=== PATIENT | female | born 1965 | race Caucasian/White ===

== ENCOUNTER 2017-12-06 17:20 | Emergency (ER) | payer OTHER ==
[2017-12-06 19:27] VITALS: BP 150/81; PULSE 70; RESP 18; O2SAT 100
[2017-12-06 20:39] LABS: BASOPHIL # 0.1 TH/MM3 (0-0.2); BASOPHIL % 0.8 % (0.0-2.0); EOSINOPHIL # 0.1 TH/MM3 (0-0.4); HEMATOCRIT 37.4 % (35.0-46.0); HEMOGLOBIN 12.1 GM/DL (11.6-15.3); LYMPH % 31.9 % (9.0-44.0); LYMPHOCYTE # 2.3 TH/MM3 (1.0-4.8); MEAN CELL VOLUME 89.3 FL (80.0-100.0); MEAN CORPUSCULAR HGB CONC 32.4 % (32.0-36.0); MEAN PLATELET VOLUME 10.1 FL (7.0-11.0); MONO % 8.8 % (0.0-8.0); MONOCYTE # 0.6 TH/MM3 (0-0.9); NEUT % 56.5 % (16.0-70.0); PLATELET COUNT 228 TH/MM3 (150-450); RED BLOOD COUNT 4.19 MIL/MM3 (4.00-5.30); RED CELL DISTRIBUTION WIDTH 18.9 % (11.6-17.2); WHITE BLOOD COUNT 7.1 TH/MM3 (4.0-11.0)
[2017-12-06 20:40] LABS: BILIRUBIN, URINE NEG (NEG); BLOOD, URINE NEG (NEG); GLUCOSE,URINE NEG (NEG); KETONE, URINE 10 mg/dL (NEG); NITRITE,URINE NEG (NEG); PH, URINE 5.5 (5.0-8.5); SQUAMOUS EPITHELIAL CELL URINE <1 /hpf (0-5); URINE COLOR LIGHT-YELLOW (YELLW/STRAW); URINE LEUKOCYTE ESTERASE NEG (NEG)
[2017-12-06 20:58] LABS: ALBUMIN 3.8 GM/DL (3.4-5.0); AST (GOT) 15 U/L (15-37); BICARBONATE 23.5 MEQ/L (21.0-32.0); BLOOD UREA NITROGEN 14 MG/DL (7-18); CALCIUM 9.4 MG/DL (8.5-10.1); CHLORIDE 110 MEQ/L (98-107); CREATININE 0.61 MG/DL (0.50-1.00); GLOMERULAR FILTRATION RATE 102 ML/MIN (>89); GLUCOSE,RANDOM 98 MG/DL (74-106); SODIUM (NA) 143 MEQ/L (136-145)
[2017-12-06 20:59] LABS: ALT (GPT) 22 U/L (10-53)
[2017-12-06 21:09] LABS: ALKALINE PHOSPHATASE 101 U/L (45-117); TOTAL BILIRUBIN ADULT 0.3 MG/DL (0.2-1.0); TOTAL PROTEIN 7.3 GM/DL (6.4-8.2)
[2017-12-06] MEDS ORDERED: POTASSIUM CHLORIDE 20 MEQ CONTROLLED RELEASE TAB PO ONE (21:15)
--- NOTE | 2017-12-06 21:34 | PD ---
HPI Chief Complaint: Psychiatric Symptoms Time Seen by Provider: 21:16 Travel History International Travel<30 days: No Contact w/Intl Traveler<30days: No Traveled to known affect area: No History of Present Illness HPI 52-year-old white female presents to the emergency department under [place] act by PD. Patient states that she had a disagreement with her moving company. She states that she had advised him that she has a history of PTSD and depression and that if she gets upset she would wind up having to go to the hospital and be admitted to the psychiatric yates for suicidal ideation. She stated to them that at this point on she did have to put her dogs down as no one would take care of them. They called the police and had her Galindo acted. The patient here denies any true suicidal ideation. She states that she was angry at the moving company and that she feels that this is a retaliation. She denies any medical complaints. No toxic ingestions. No recent illness or drugs. PFSH Past Medical History Narrative Medical Hypothyroidism, GERD, IBS, celiac sprue, PTSD, depression, obesity Tetanus Vaccination: < 5 Years Past Surgical History Narrative Surgical Gastric bypass, cholecystectomy, tubal ligation, 5 hernia repairs, abdominoplasty Social History Alcohol Use: No Tobacco Use: No Substance Use: No Allergies-Medications (Allergen,Severity, Reaction): Coded Allergies: acetaminophen (Unverified Allergy, Unknown, 12/06/17) cetirizine (Unverified Allergy, Unknown, 12/06/17) codeine (Unverified Allergy, Unknown, 12/06/17) morphine (Unverified Allergy, Unknown, 12/06/17) oxycodone (Unverified Allergy, Unknown, 12/06/17) Review of Systems General / Constitutional: No: Fever Eyes: No: Visual changes HENT: No: Headaches Cardiovascular: No: Chest Pain or Discomfort Respiratory: No: Shortness of Breath Gastrointestinal: No: Abdominal Pain Genitourinary: No: Dysuria Musculoskeletal: No: Pain Skin: No Rash Neurologic: No: Weakness Psychiatric: Positive: Depression, Mood Disorder, No: Anxiety, Suicidal Ideations, Disorder of Thought, Substance Abuse, Homicidal Ideation Endocrine: No: Polydipsia Hematologic/Lymphatic: No: Easy Bruising Physical Exam Narrative GENERAL: Well-nourished, well-developed patient. SKIN: Warm and dry. HEAD: Normocephalic and atraumatic. EYES: No scleral icterus. No injection or drainage. ENT: No nasal drainage noted. Mucous membranes pink. Airway patent. NECK: Supple, trachea midline. Moves head freely without obvious discomfort. CARDIOVASCULAR: Regular rate and rhythm without murmurs, gallops, or rubs. RESPIRATORY: Breath sounds equal bilaterally. No accessory muscle use. GASTROINTESTINAL: Abdomen soft, non-tender, nondistended. EXTREMITIES: No cyanosis or edema. BACK: Nontender without obvious deformity. No CVA tenderness. NEURO: Patient is alert and oriented. no sensorimotor deficits. Nonfocal. Normal speech. PSYCH: No delusions. No auditory or visual hallucinations. Data Data Last Documented VS Vital Signs Date Time Temp Pulse Resp B/P (MAP) Pulse Ox O2 Delivery O2 Flow Rate FiO2 12/06/17 19:27 70 18 150/81 (104) 100 Room Air Orders Orders Complete Blood Count With Diff (12/06/17 18:57) Comprehensive Metabolic Panel (12/06/17 18:57) Thyroid Stimulating Hormone (12/06/17 18:57) Urinalysis - C+S If Indicated (12/06/17 18:57) Psych Screen (12/06/17 18:57) Drug Screen, Random Urine (12/06/17 18:57) Alcohol (Ethanol) (12/06/17 18:57) Diet Regular Basic (12/06/17 Dinner) Potassium Chloride (Kcl) (12/06/17 21:15) Labs Laboratory Tests Test 12/06/17 20:05 White Blood Count 7.1 TH/MM3 Red Blood Count 4.19 MIL/MM3 Hemoglobin 12.1 GM/DL Hematocrit 37.4 % Mean Corpuscular Volume 89.3 FL Mean Corpuscular Hemoglobin 29.0 PG Mean Corpuscular Hemoglobin Concent 32.4 % Red Cell Distribution Width 18.9 % Platelet Count 228 TH/MM3 Mean Platelet Volume 10.1 FL Neutrophils (%) (Auto) 56.5 % Lymphocytes (%) (Auto) 31.9 % Monocytes (%) (Auto) 8.8 % Eosinophils (%) (Auto) 2.0 % Basophils (%) (Auto) 0.8 % Neutrophils # (Auto) 4.0 TH/MM3 Lymphocytes # (Auto) 2.3 TH/MM3 Monocytes # (Auto) 0.6 TH/MM3 Eosinophils # (Auto) 0.1 TH/MM3 Basophils # (Auto) 0.1 TH/MM3 CBC Comment DIFF FINAL Differential Comment Urine Color LIGHT-YELLOW Urine Turbidity CLEAR Urine pH 5.5 Urine Specific [place] 1.007 Urine Protein NEG mg/dL Urine Glucose (UA) NEG mg/dL Urine Ketones 10 mg/dL Urine Occult Blood NEG Urine Nitrite NEG Urine Bilirubin NEG Urine Urobilinogen LESS THAN 2.0 MG/DL Urine Leukocyte Esterase NEG Urine RBC LESS THAN 1 /hpf Urine WBC LESS THAN 1 /hpf Urine Squamous Epithelial Cells <1 /hpf Microscopic Urinalysis Comment CULT NOT INDICATED Blood Urea Nitrogen 14 MG/DL Creatinine 0.61 MG/DL Random Glucose 98 MG/DL Total Protein 7.3 GM/DL Albumin 3.8 GM/DL Calcium Level 9.4 MG/DL Alkaline Phosphatase 101 U/L Aspartate Amino Transf (AST/SGOT) 15 U/L Alanine Aminotransferase (ALT/SGPT) 22 U/L Total Bilirubin 0.3 MG/DL Sodium Level 143 MEQ/L Potassium Level 3.3 MEQ/L Chloride Level 110 MEQ/L Carbon Dioxide Level 23.5 MEQ/L Anion Gap 10 MEQ/L Estimat Glomerular Filtration Rate 102 ML/MIN Thyroid Stimulating Hormone 3rd Gen 0.177 uIU/ML Urine Opiates Screen NEG Urine Barbiturates Screen NEG Urine Amphetamines Screen NEG Urine Benzodiazepines Screen NEG Urine Cocaine Screen NEG Urine Cannabinoids Screen NEG Ethyl Alcohol Level LESS THAN 3 MG/DL MDM Medical Decision Making Medical Screen Exam Complete: Yes Emergency Medical Condition: Yes Medical Record Reviewed: Yes Differential Diagnosis MDM: High Differential diagnoses: Schizophrenia, schizoaffective disorder, bipolar, anxiety, depression, adjustment reaction, mood disorder NOS, ODD, depressive disorder NOS, dementia, dementia with agitation, psychosis NOS, substance induced mood disorder, DMDD, Asperger syndrome, infection,electrolyte abnormality, malingering. Narrative Course Mental health screening discussed with the patient. Psychiatric screen ordered. The patient has been medically clear. Patient is given 20 mg of potassium p.o. There is a medical clearance for psychiatric admission Diagnosis Primary Impression: Medical clearance for psychiatric admission Condition: Bao Cortez Dec 06, 2017 21:34
[2017-12-07 02:11] VITALS: BP 109/72; PULSE 62; RESP 16; O2SAT 98
[2017-12-07 06:31] VITALS: BP 115/72; PULSE 68; RESP 18; O2SAT 99
[2017-12-07 10:00] VITALS: BP 152/88; PULSE 89; RESP 18
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
--- NOTE | 2017-12-07 11:03 | PD ---
Physical Exam Date Seen by Provider: Dec 07, 2017 Time Seen by Provider: 11:02 Narrative 52-year-old female previously medically cleared for psychiatric evaluation, has been seen and evaluated by psychiatric staff and deemed psychiatrically stable for discharge. Patient remains medically stable at this time. Follow-up will be based on psychiatric note. Data Data Last Documented VS Vital Signs Date Time Temp Pulse Resp B/P (MAP) Pulse Ox O2 Delivery O2 Flow Rate FiO2 12/07/17 10:00 89 18 152/88 (109) Room Air 12/07/17 06:31 99 Orders Orders Complete Blood Count With Diff (12/06/17 18:57) Comprehensive Metabolic Panel (12/06/17 18:57) Thyroid Stimulating Hormone (12/06/17 18:57) Urinalysis - C+S If Indicated (12/06/17 18:57) Psych Screen (12/06/17 18:57) Drug Screen, Random Urine (12/06/17 18:57) Alcohol (Ethanol) (12/06/17 18:57) Diet Regular Basic (12/06/17 Dinner) Potassium Chloride (Kcl) (12/06/17 21:15) Diet Regular Basic (12/07/17 Breakfast) Diet Regular Basic (12/07/17 Lunch) Labs Laboratory Tests Test 12/06/17 20:05 White Blood Count 7.1 TH/MM3 Red Blood Count 4.19 MIL/MM3 Hemoglobin 12.1 GM/DL Hematocrit 37.4 % Mean Corpuscular Volume 89.3 FL Mean Corpuscular Hemoglobin 29.0 PG Mean Corpuscular Hemoglobin Concent 32.4 % Red Cell Distribution Width 18.9 % Platelet Count 228 TH/MM3 Mean Platelet Volume 10.1 FL Neutrophils (%) (Auto) 56.5 % Lymphocytes (%) (Auto) 31.9 % Monocytes (%) (Auto) 8.8 % Eosinophils (%) (Auto) 2.0 % Basophils (%) (Auto) 0.8 % Neutrophils # (Auto) 4.0 TH/MM3 Lymphocytes # (Auto) 2.3 TH/MM3 Monocytes # (Auto) 0.6 TH/MM3 Eosinophils # (Auto) 0.1 TH/MM3 Basophils # (Auto) 0.1 TH/MM3 CBC Comment DIFF FINAL Differential Comment Urine Color LIGHT-YELLOW Urine Turbidity CLEAR Urine pH 5.5 Urine Specific [place] 1.007 Urine Protein NEG mg/dL Urine Glucose (UA) NEG mg/dL Urine Ketones 10 mg/dL Urine Occult Blood NEG Urine Nitrite NEG Urine Bilirubin NEG Urine Urobilinogen LESS THAN 2.0 MG/DL Urine Leukocyte Esterase NEG Urine RBC LESS THAN 1 /hpf Urine WBC LESS THAN 1 /hpf Urine Squamous Epithelial Cells <1 /hpf Microscopic Urinalysis Comment CULT NOT INDICATED Blood Urea Nitrogen 14 MG/DL Creatinine 0.61 MG/DL Random Glucose 98 MG/DL Total Protein 7.3 GM/DL Albumin 3.8 GM/DL Calcium Level 9.4 MG/DL Alkaline Phosphatase 101 U/L Aspartate Amino Transf (AST/SGOT) 15 U/L Alanine Aminotransferase (ALT/SGPT) 22 U/L Total Bilirubin 0.3 MG/DL Sodium Level 143 MEQ/L Potassium Level 3.3 MEQ/L Chloride Level 110 MEQ/L Carbon Dioxide Level 23.5 MEQ/L Anion Gap 10 MEQ/L Estimat Glomerular Filtration Rate 102 ML/MIN Thyroid Stimulating Hormone 3rd Gen 0.177 uIU/ML Urine Opiates Screen NEG Urine Barbiturates Screen NEG Urine Amphetamines Screen NEG Urine Benzodiazepines Screen NEG Urine Cocaine Screen NEG Urine Cannabinoids Screen NEG Ethyl Alcohol Level LESS THAN 3 MG/DL MDM Medical Record Reviewed: Yes Supervised Visit with SONAM: Yes Narrative Course 52-year-old female previously medically cleared for psychiatric evaluation, has been seen and evaluated by psychiatric staff and deemed psychiatrically stable for discharge. Patient remains medically stable at this time. Follow-up will be based on psychiatric note. Diagnosis Primary Impression: Medical clearance for psychiatric admission Patient Instructions: General Instructions Disposition: 01 DISCHARGE HOME Condition: Stable Dereck Nicholas Dec 07, 2017 11:03
--- NOTE | 2017-12-07 12:45 | PD.PSY.CON ---
Provisional Diagnosis Admission Date Sabina I. Adjustment disorder with depressed mood, borderline personality disorder, history of ADHD, PTSD, Sabina II. Borderline personality disorder History of Present Illness Service Psychiatry Consult Requested By ER Reason for Consult Mateo ly Primary Care Physician Junior Valenzuela HPI The patient a 52 y/o female who has a hx of borderline personality disorder, PTSD, anxiety, Depression, and ADHD, medical history of asthma, IBS, hypothyroidism and celiac disease, denies the use of illegal drugs and alcohol. She became overwhelmed and upset yesterday when dealing with her moving company and threatened to put her dogs to sleep if she had to go to the hospital because of feeling so overwhelmed. She appears very goal driven and focused on the future. She has the support of her neighbors, children, and animals. She denied ever wanting to hurt herself and currently has no suicidal or homicidal ideations. When discharged she will head home and then get her stuff together to make the move to [place]. Based on the HPI and her supportive factors she is a safe discharge home. Past Family Social History Coded Allergies: acetaminophen (Unverified Allergy, Unknown, 12/06/17) cetirizine (Unverified Allergy, Unknown, 12/06/17) codeine (Unverified Allergy, Unknown, 12/06/17) morphine (Unverified Allergy, Unknown, 12/06/17) oxycodone (Unverified Allergy, Unknown, 12/06/17) Family Psych History Family hx- daughter has Munchausen Social History PMH- Asthma, hypothyroidism, IBS, sciatica, Celiac disease, hypokalemia Physical Exam Vital Signs Vital Signs Date Time Temp Pulse Resp B/P (MAP) Pulse Ox O2 Delivery O2 Flow Rate FiO2 12/07/17 10:00 89 18 152/88 (109) Room Air 12/07/17 06:31 99 Lab Results Test 12/06/17 20:05 White Blood Count 7.1 TH/MM3 Red Blood Count 4.19 MIL/MM3 Hemoglobin 12.1 GM/DL Hematocrit 37.4 % Mean Corpuscular Volume 89.3 FL Mean Corpuscular Hemoglobin 29.0 PG Mean Corpuscular Hemoglobin Concent 32.4 % Red Cell Distribution Width 18.9 % Platelet Count 228 TH/MM3 Mean Platelet Volume 10.1 FL Neutrophils (%) (Auto) 56.5 % Lymphocytes (%) (Auto) 31.9 % Monocytes (%) (Auto) 8.8 % Eosinophils (%) (Auto) 2.0 % Basophils (%) (Auto) 0.8 % Neutrophils # (Auto) 4.0 TH/MM3 Lymphocytes # (Auto) 2.3 TH/MM3 Monocytes # (Auto) 0.6 TH/MM3 Eosinophils # (Auto) 0.1 TH/MM3 Basophils # (Auto) 0.1 TH/MM3 CBC Comment DIFF FINAL Differential Comment Urine Color LIGHT-YELLOW Urine Turbidity CLEAR Urine pH 5.5 Urine Specific [place] 1.007 Urine Protein NEG mg/dL Urine Glucose (UA) NEG mg/dL Urine Ketones 10 mg/dL Urine Occult Blood NEG Urine Nitrite NEG Urine Bilirubin NEG Urine Urobilinogen LESS THAN 2.0 MG/DL Urine Leukocyte Esterase NEG Urine RBC LESS THAN 1 /hpf Urine WBC LESS THAN 1 /hpf Urine Squamous Epithelial Cells <1 /hpf Microscopic Urinalysis Comment CULT NOT INDICATED Blood Urea Nitrogen 14 MG/DL Creatinine 0.61 MG/DL Random Glucose 98 MG/DL Total Protein 7.3 GM/DL Albumin 3.8 GM/DL Calcium Level 9.4 MG/DL Alkaline Phosphatase 101 U/L Aspartate Amino Transf (AST/SGOT) 15 U/L Alanine Aminotransferase (ALT/SGPT) 22 U/L Total Bilirubin 0.3 MG/DL Sodium Level 143 MEQ/L Potassium Level 3.3 MEQ/L Chloride Level 110 MEQ/L Carbon Dioxide Level 23.5 MEQ/L Anion Gap 10 MEQ/L Estimat Glomerular Filtration Rate 102 ML/MIN Thyroid Stimulating Hormone 3rd Gen 0.177 uIU/ML Urine Opiates Screen NEG Urine Barbiturates Screen NEG Urine Amphetamines Screen NEG Urine Benzodiazepines Screen NEG Urine Cocaine Screen NEG Urine Cannabinoids Screen NEG Ethyl Alcohol Level LESS THAN 3 MG/DL Mental Status Examination Appearance: Appropriate Consciousness: Alert Orientation: x4 Motor Activity: Normal gait Speech: Unremarkable Language: Adequate Fund of Knowledge: Adequate Attention and Concentration: Adequate Memory: Unremarkable Mood: Appropriate Affect: Appropriate Thought Process & Associations: Intact Thought Content: Appropriate Hallucination Type: None Delusion Type: None Suicidal Ideation: No Suicidal Plan: No Suicidal Intention: No Homicidal Ideation: No Homicidal Plan: No Homicidal Intention: No Insight: Fair Judgment: Impulsive Assessment & Plan Problem List: (1) Borderline personality disorder ICD Codes: F60.3 - Borderline personality disorder Status: Acute Assessment & Plan: This is a 52 y/o female who has a hx of borderline personality disorder, PTSD, anxiety, Depression, and ADHD. She became overwhelmed and upset yesterday when dealing with her moving company and threatened to put her dogs to sleep if she had to go to the hospital because of feeling so overwhelmed. She appears very goal driven and focused on the future. She has the support of her neighbors, children, and animals. She denied ever wanting to hurt herself and currently has no suicidal or homicidal ideations. When discharged she will head home and then get her stuff together to make the move to [place]. Based on the HPI and her supportive factors she is a safe discharge home. Galindo act will be lifted. Assessment & Plan Estimated LOS: David Pinon MD Dec 07, 2017 12:45
== END 2017-12-07 12:00 | disposition home or self-care (01) ==
LOC: NEPJ 17:20
DX: F60.3 Borderline personality disorder (principal); F32.9 Major depressive disorder, single episode, unspecified
CPT/HCPCS: 80053; 80307; 81001; 84443; 85025; 99284